=== PATIENT | female | born 1990 | race Caucasian/White ===

== ENCOUNTER 2019-01-26 03:15 | Inpatient (IN) | payer OTHER ==
[2019-01-26] MEDS ORDERED: AMPICILLIN - 2 GM in SODIUM CHLORIDE 100 ML IVPB ONE (04:00)
[2019-01-26] MEDS ORDERED: DEXTROSE 5%-LACTATED RINGERS 500 ML IV ONE (04:00)
[2019-01-26] MEDS ORDERED: AMPICILLIN SODIUM 2 GM VIAL ONE (04:01)
[2019-01-26 04:06] VITALS: BMI 38.0
[2019-01-26 04:29] LABS: BASO % 0.1 % (0-2.0); EOS % 0.1 % (0-4.5); HEMATOCRIT 37.4 % (32.4-45.2); HEMOGLOBIN 12.4 GM/dL (10.7-15.3); LYMPH % 13.7 % (8-40); MCH 29.4 pg (25.7-33.7); MCHC 33.1 g/dl (32.0-36.0); MEAN CELL VOLUME 88.7 fl (80-96); MEAN PLT VOLUME 7.8 fl (7.5-11.1); MONO % 7.6 % (3.8-10.2); NEUT % 78.5 % (42.8-82.8); PLATELET COUNT 245 K/MM3 (134-434); RBC 4.22 M/mm3 (3.60-5.2); RDW 15.2 % (11.6-15.6); WHITE BLOOD COUNT 10.7 K/mm3 (4.0-10.0)
[2019-01-26] MEDS ORDERED: PROMETHAZINE HCL 25 MG/1 ML VIAL IVPB ONE (04:40)
[2019-01-26] MEDS ORDERED: BUTORPHANOL TARTRATE 1 MG/ML VIAL IVPB ONE (04:40)
[2019-01-26 04:42] LABS: INR 0.94 (0.83-1.09); PROTHROMBIN TIME (PATIENT) 11.1 SEC (9.7-13.0)
[2019-01-26 04:45] LABS: ACTIVATED PTT 26.1 SECONDS (25.2-36.5)
[2019-01-26 04:50] LABS: ANION GAP 10 MMOL/L (8-16); BLOOD UREA NITROGEN 6 mg/dL (7-18); CALCIUM 8.2 mg/dL (8.5-10.1); CHLORIDE 108 mmol/L (98-107); CO2 23 mmol/L (21-32); CREATININE 0.4 mg/dL (0.55-1.3); GLUCOSE,RANDOM 92 mg/dL (74-106); POTASSIUM 3.9 mmol/L (3.5-5.1); SODIUM 140 mmol/L (136-145)
[2019-01-26] MEDS ORDERED: DEXTROSE 5%-LACTATED RINGERS 1,000 ML IV SCH (05:00)
[2019-01-26] MEDS ORDERED: BUTORPHANOL TARTRATE 2 MG/ML VIAL ONE (05:12)
[2019-01-26] MEDS ORDERED: PROMETHAZINE HCL 25 MG/1 ML VIAL ONE (05:12)
[2019-01-26] MEDS ORDERED: AMPICILLIN SODIUM 1 GM VIAL ONE ×4 (07:11→20:16)
[2019-01-26] MEDS: AMPICILLIN - 1 GM in SODIUM CHLORIDE 100 ML IVPB SCH ×4 (07:31→20:30)
--- NOTE | 2019-01-26 08:14 | HP ---
Past Medical History - Admission Chief Complaint: Labor pain History of Present Illness: 28 yo , @ 38.5 weeks gestation, EDC 02/04/19, admitted for labor pain. History Source: Patient Limitations to Obtaining History: No Limitations - Past Medical History ...: 1 ...Para: 0 ...Term: 0 ...: 0 ...Spon : 0 ...Induced : 0 ...Multiple Gestation: 0 ...LMP: 04/24/18 ... Weeks Gestation by Dates: 38.5 ...EDC by Dates: 02/04/19 - Past Surgical History Past Surgical History: Yes: None Hx Myomectomy: No Hx Transabdominal Cerclage: No - Smoking History Smoking history: Never smoked - Alcohol/Substance Use Hx Alcohol Use: No - Social History History of Recent Travel: No Home Medications - Allergies Allergies/Adverse Reactions: Allergies Allergy/AdvReac Type Severity Reaction Status Date / Time No Known Allergies Allergy Verified 01/25/19 07:21 - Home Medications Home Medications: Ambulatory Orders Pnv,Calcium 72/Iron,Carb/Folic [ Plus Iron Tablet] 1 tab PO DAILY Family Disease History - Family Disease History Family History: Unremarkable Review of Systems - Review of Systems Constitutional: reports: No Symptoms Eyes: reports: No Symptoms HENT: reports: No Symptoms Neck: reports: No Symptoms Cardiovascular: reports: No Symptoms Respiratory: reports: No Symptoms Gastrointestinal: reports: No Symptoms Genitourinary: reports: Pain Neurological: reports: No Symptoms Psychiatric: reports: No Symptoms Pain Intensity: 7 Physical Exam - Maternity Vital Signs: Vital Signs Temperature 98.4 F 01/26/19 06:00 Pulse Rate 86 01/26/19 07:00 Respiratory Rate 20 01/26/19 07:00 Blood Pressure 124/78 01/26/19 07:00 O2 Sat by Pulse Oximetry (%) Constitutional: Yes: Well Nourished Eyes: Yes: Conjunctiva Clear HENT: Yes: Atraumatic Neck: Yes: Supple Cardiovascular: Yes: Regular Rate and Rhythm Lungs: Clear to auscultation - Abdominal Exam/OB Number of Fetuses: Single Presentation: Vertex - Physical Exam Psychiatric: Yes: Alert, Oriented - Labs Lab Results: CBC, BMP 01/26/19 04:10 05/05/19 04:10 Problem List - Problems (1) Pain during labor Code(s): O99.89 - OTH DISEASES AND CONDITIONS COMPL PREG/CHLDBRTH; R52 - PAIN, UNSPECIFIED Assessment/Plan Labor pain Admit to L&D Analgesia as needed Anticipate
[2019-01-26] MEDS: ELECTROLYTE-148 SOLN 1,000 ML IV SCH ×3 (08:50→18:26)
[2019-01-26] MEDS ORDERED: FENTANYL/BUPIVACAINE/NS/PF - PCEA - 50 ML DISP.SYRIN EP ONE ×4 (08:59→21:34)
[2019-01-26] MEDS ORDERED: TUBERCULIN PPD 5 TU/0.1ML SYRINGE (IN PATIENT USE ONLY) ID ONE (09:00)
[2019-01-26] MEDS ORDERED: NALOXONE HCL 0.4 MG/ML VIAL IVPUSH PRN (09:07)
[2019-01-26] MEDS ORDERED: LIDO 2%/EPI 1:200000 PRESRVFRE (20 ML SDVIAL) ONE (09:09)
[2019-01-26] MEDS ORDERED: FENTANYL/BUPIVACAINE/NS/PF - PCEA - 50 ML DISP.SYRIN EP SCH (09:15)
[2019-01-26] MEDS ORDERED: OXYTOCIN 20 UNITS in 0.9% NS 20 UNIT/1,000 ML INFUS.BAG IV ONE (09:44)
--- NOTE | 2019-01-26 13:48 | PN ---
Ante-Partal Exam - Subjective Subjective: Pt with mild pain pt comfortable with epidural Vital Signs: Vital Signs Temperature 98.9 F 01/26/19 13:00 Pulse Rate 107 H 01/26/19 12:45 Respiratory Rate 20 01/26/19 12:45 Blood Pressure 129/82 01/26/19 12:45 O2 Sat by Pulse Oximetry (%) 96 01/26/19 12:45 Bleeding: No Headache: No Visual changes: No Right upper quadrant pain: No - Contractions Contractions: Yes Regularity: Irregular Intensity: Mild Monitor Mode: External - Exam during Labor Heart Rate: 140 Variability: Moderate Category: I Monitor Decelerations: None Exam: Vaginal Dilatation (cm): 5 cm Amniotic Membrane Status: Bulging Presentation: Vertex Station: -2 - Intrapartum Hemorrhage Risk Risk Score: 0 Risk Level: Low Risk - Assessment/Plan Assessment/Plan: Labor at 38.5 weeks GBS positive Primigravida Plan continue to observe epidural
--- NOTE | 2019-01-26 21:32 | PN ---
Ante-Partal Exam - Subjective Subjective: Pt feeling comfortable Vital Signs: Vital Signs Temperature 99.9 F H 01/26/19 21:00 Pulse Rate 83 01/26/19 20:00 Respiratory Rate 18 01/26/19 20:00 Blood Pressure 149/81 01/26/19 20:00 O2 Sat by Pulse Oximetry (%) 95 01/26/19 20:00 Bleeding: No Headache: No Visual changes: No Right upper quadrant pain: No - Contractions Contractions: Yes Regularity: Irregular Intensity: Mild/Mod Monitor Mode: External - Exam during Labor Heart Rate: 140 Variability: Moderate Heart Rate Location: [facility] Category: I Monitor Decelerations: None Exam: Vaginal Dilatation (cm): 6 Effacement (%): 100 Amniotic Membrane Status: Ruptured Presentation: Vertex - Intrapartum Hemorrhage Risk Risk Score: 0 Risk Level: Low Risk - Assessment/Plan Assessment/Plan: Irregular contractions Cat 1 AROM clear GBS positive on abs IUP @ 38.6 week Plan Pitocin augmentation
[2019-01-26] MEDS ORDERED: BISACODYL 10 MG SUPP.RECT PR PRN (21:33)
[2019-01-26] MEDS ORDERED: BENZOCAINE 28 GM HEMORRHOIDAL OINTMENT PR PRN (21:33)
[2019-01-26] MEDS ORDERED: WITCH HAZEL 50% (TUCKS) 40 PAD/JAR PAD TP PRN (21:33)
[2019-01-26] MEDS ORDERED: BENZOCAINE 20% 57 GM BOTTLE TP PRN (21:33)
[2019-01-26] MEDS ORDERED: METHYLERGONOVINE MALEATE 0.2 MG/1 ML AMP IM PRN (21:33)
[2019-01-26] MEDS ORDERED: OXYTOCIN 30 UNITS in 0.9% NS 30 UNIT/500 ML INFUS.BAG IVPB SCH (21:45)
[2019-01-26] MEDS: ACETAMINOPHEN 325 MG TABLET (FP) PO PRN (22:16)
[2019-01-26] MEDS ORDERED: ACETAMINOPHEN 325 MG TABLET (FP) ONE (22:17)
[2019-01-27] MEDS: AMPICILLIN - 1 GM in SODIUM CHLORIDE 100 ML IVPB SCH (00:43)
--- NOTE | 2019-01-27 00:58 | PN ---
Ante-Partal Exam - Subjective Subjective: Pt with urge to push Vital Signs: Vital Signs Temperature 98.4 F 01/27/19 00:00 Pulse Rate 80 01/26/19 23:00 Respiratory Rate 18 01/26/19 23:00 Blood Pressure 142/75 01/26/19 23:00 O2 Sat by Pulse Oximetry (%) 97 01/26/19 23:00 Bleeding: No Headache: No Visual changes: No Right upper quadrant pain: No - Contractions Contractions: Yes Intensity: Moderate Monitor Mode: External - Exam during Labor Heart Rate: 150 Variability: Moderate Heart Rate Location: [facility] Category: I Monitor Accelerations: Present Monitor Decelerations: None Exam: Vaginal Dilatation (cm): FD Effacement (%): 100 Amniotic Membrane Status: Ruptured Amniotic Fluid: Clear Presentation: Vertex Station: +2 - Intrapartum Hemorrhage Risk Risk Score: 0 Risk Level: Low Risk - Assessment/Plan Assessment/Plan: 2nd stage of labor Plan anticipate vaginal delivery
--- NOTE | 2019-01-27 01:19 | PN ---
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
[2019-01-27] MEDS: ACETAMINOPHEN 325 MG TABLET (FP) PO PRN ×3 (01:55→14:24)
[2019-01-27] MEDS: IBUPROFEN 600 MG TABLET (FP) PO PRN ×3 (01:56→14:24)
[2019-01-27] MEDS ORDERED: IBUPROFEN 600 MG TABLET (FP) PO ONE (01:59)
[2019-01-27] MEDS ORDERED: ACETAMINOPHEN 325 MG TABLET (FP) ONE (01:59)
[2019-01-27 02:11] LABS: VENOUS PC02 41.7 mmHg (41-51); VENOUS PH 7.34 (7.31-7.41); VENOUS PO2 33.5 mmHg (30-40)
[2019-01-27 07:59] LABS: BASO % 0.1 % (0-2.0); HEMATOCRIT 32.6 % (32.4-45.2); HEMOGLOBIN 10.7 GM/dL (10.7-15.3); LYMPH % 8.6 % (8-40); MCH 29.1 pg (25.7-33.7); MCHC 32.7 g/dl (32.0-36.0); MEAN CELL VOLUME 89.1 fl (80-96); MEAN PLT VOLUME 7.6 fl (7.5-11.1); MONO % 10.6 % (3.8-10.2); NEUT % 80.7 % (42.8-82.8); PLATELET COUNT 206 K/MM3 (134-434); RBC 3.66 M/mm3 (3.60-5.2); RDW 15.1 % (11.6-15.6); WHITE BLOOD COUNT 12.8 K/mm3 (4.0-10.0)
[2019-01-27] MEDS ORDERED: DIPHTH,PERTUSS(ACELL),TET 0.5 ML DISP.SYRIN IM ONE (10:00)
[2019-01-27] MEDS ORDERED: FLU VACCINE QUAD 60 MCG/0.5 ML (MDV 18-19) IM ONE (10:00)
--- NOTE | 2019-01-28 09:02 | PN ---
Post Progress Note - Subjective Subjective: Pt doing well, no complaints. Tolerating diet, ambulating, voiding, passing flatus. Type of Delivery: Vital Signs: Vital Signs Temperature 98.4 F 01/28/19 08:41 Pulse Rate 91 H 01/28/19 08:41 Respiratory Rate 20 01/28/19 08:41 Blood Pressure 139/88 01/28/19 08:41 O2 Sat by Pulse Oximetry (%) 100 01/27/19 02:15 Uterus: Yes: Fundus Firm Abdomen/GI: Yes: Abdomen soft Lochia: Yes: Rubra Lochia, amount: Small Extremities: Yes: Calves non-tender Activity: Ambulating - Labs Labs: CBC WBC 12.8 K/mm3 (4.0-10.0) H 01/27/19 06:48 RBC 3.66 M/mm3 (3.60-5.2) 01/27/19 06:48 Hgb 10.7 GM/dL (10.7-15.3) 01/27/19 06:48 Hct 32.6 % (32.4-45.2) 01/27/19 06:48 MCV 89.1 fl (80-96) 01/27/19 06:48 MCH 29.1 pg (25.7-33.7) 01/27/19 06:48 MCHC 32.7 g/dl (32.0-36.0) 01/27/19 06:48 RDW 15.1 % (11.6-15.6) 01/27/19 06:48 Plt Count 206 K/MM3 (134-434) 01/27/19 06:48 MPV 7.6 fl (7.5-11.1) 01/27/19 06:48 Absolute Neuts (auto) 10.3 K/mm3 (1.5-8.0) H 01/27/19 06:48 Neutrophils % 80.7 % (42.8-82.8) 01/27/19 06:48 Lymphocytes % 8.6 % (8-40) D 01/27/19 06:48 Monocytes % 10.6 % (3.8-10.2) H 01/27/19 06:48 Eosinophils % 0.0 % (0-4.5) D 01/27/19 06:48 Basophils % 0.1 % (0-2.0) 01/27/19 06:48 Nucleated RBC % 0 % (0-0) 01/27/19 06:48 Problem List - Problems (1) Vaginal delivery Code(s): O80 - ENCOUNTER FOR FULL-TERM UNCOMPLICATED DELIVERY Assessment/Plan Pt doing well regular diet ambulation await CBC this a.m. pt desires circumcision for baby, awaiting clearance from embryology teacher
[2019-01-28] MEDS: IBUPROFEN 600 MG TABLET (FP) PO PRN (09:29)
[2019-01-28] MEDS: ACETAMINOPHEN 325 MG TABLET (FP) PO PRN (09:30)
[2019-01-29 09:13] VITALS: BP 131/76; PULSE 101; TEMP 98.4
--- NOTE | 2019-02-03 11:41 | DS ---
Physical Exam-DEMURRAGE MAN Vital Signs: Vital Signs Temperature 98.4 F 01/29/19 09:12 Pulse Rate 101 H 01/29/19 09:12 Respiratory Rate 18 01/29/19 09:12 Blood Pressure 131/76 01/29/19 09:12 O2 Sat by Pulse Oximetry (%) 100 01/27/19 02:15 Constitutional: Yes: Well Nourished, No Distress Eyes: Yes: WNL HENT: Yes: WNL Neck: Yes: WNL Cardiovascular: Yes: WNL Respiratory: Yes: WNL Gastrointestinal: Yes: WNL ....Post : Yes: Uterus firm, Uterus non-tender Breast(s): Yes: WNL Musculoskeletal: Yes: WNL Edema: No Labs: CBC, BMP 01/27/19 06:48 01/26/19 04:10 Delivery - Delivery Vaginal Delivery: No Problems (NUchal cord x 1 delivered in Samantha maneuver) Type of Anesthesia: Epidural Episiotomy/Laceration: Midline EBL (cc): 500 Delivery, Single - Stages of Labor Date 1st Stage Initiatied: 01/27/19 Time 1st Stage Initiated: 05:20 Date 2nd Stage Initiated: 01/27/19 Time 2nd Stage Initiated: 00:30 Date of Delivery: 01/27/19 Time of Delivery: 01:07 Time Placenta Delivered: 01:09 Placenta: Yes: Spontaneous - Condition of School Bus Dispatcher/Health Data Administrator Present: Yes Infant Gender: Male Weight: 7 lb 14 oz Position: OA Total Hours ROM (Hrs/Mins): 2h 47m - 1 Minute Total Score: 9 5 Minutes Total Score: 9 - Feeding Plan Initial Plan: Elected not to breastfeed exclusively throughout hospitalization Benefits of Exclusively reinforced: Yes Discharge Summary Reason For Visit: LABOR Procedures: Principal: Normal vaginal delivery Condition: Good - Instructions Diet, Activity, Other Instructions: Physical activity Resume your normal everyday activity as tolerated no heavy lifting or exercise until seen by your surgeon. You may walk unlimited [place] of and climb stairs. You may resume driving the car when you feel safe and comfortable behind the wheel. No sexual activity as instructed. Wound care If you have a bandage, leave it on, and keep dry for 48-72 hours. After that time discard the outer bandage. If they are tapes on the skin under the out of bandage leave them in place. They will peel off in the next 7 to 10 days. Do Not Peel them off. You may shower the day after surgery. If there are tapes present on the skin, you may shower over them. Diet There are no dietary restrictions. Eat healthy, high-fiber foods. Drink 6 to 8 glasses of liquid each day. This will assist in keeping your bowels are regular. Pain management You may take Tylenol or acetaminophen or Ibuprofen (for example, Motrin, Advil etc.) from my pain prescription medication is ordered should be taken as prescribed for moderate to severe pain. Call MD for any of the following: Severe pain not relieved by medication Fever of 101 or higher Excessive bleeding or drainage on dressing Inability to urinate Disposition: HOME - Home Medications Comprehensive Discharge Medication List: Ambulatory Orders Pnv,Calcium 72/Iron,Carb/Folic [ Plus Iron Tablet] 1 tab PO DAILY Ibuprofen [Motrin -] 600 mg PO QID #28 tablet 01/27/19
== END 2019-01-29 18:30 | disposition home or self-care (01) | DRG 560 ==
LOC: JDEL 03:15 → JLDR 03:40 → J3W 01-27 02:54
PROVIDERS: ADMIT Obstetrics & Gynecology; ATTEND Obstetrics & Gynecology
PROC: 10E0XZZ Delivery of Products of Conception, External Approach (ICD-10-PCS; principal; 2019-01-27)
DX: O80 Encounter for full-term uncomplicated delivery (principal); Z3A.38 38 weeks gestation of pregnancy; Z37.0 Single live birth
CPT/HCPCS: 36415; 59025; 59409; 71046-TC-FY; 80048; 82803; 85025; 85610; 85730; 86593; 86850; 86900; 86901; 87389; 90686; 90715; G0008

== ENCOUNTER 2020-11-19 06:20 | Inpatient (IN) | payer OTHER ==
[2020-11-19] MEDS ORDERED: PROMETHAZINE HCL 25 MG/1 ML VIAL IVPUSH ONE (07:20)
[2020-11-19] MEDS ORDERED: BUTORPHANOL TARTRATE 2 MG/ML VIAL IVPB ONE (07:20)
[2020-11-19] MEDS ORDERED: ELECTROLYTE-148 SOLN 1,000 ML IV SCH (07:30)
[2020-11-19] MEDS ORDERED: OXYTOCIN 20 UNITS in 0.9% NS 20 UNIT/1,000 ML INFUS.BAG IV ONE ×2 (07:31→10:04)
[2020-11-19] MEDS ORDERED: WITCH HAZEL 50% (TUCKS) 40 PAD/JAR PAD TP PRN (08:02)
[2020-11-19] MEDS ORDERED: BISACODYL 10 MG SUPP.RECT PR PRN (08:02)
[2020-11-19] MEDS ORDERED: BENZOCAINE 28 GM HEMORRHOIDAL OINTMENT TP PRN (08:02)
[2020-11-19] MEDS ORDERED: METHYLERGONOVINE MALEATE 0.2 MG/1 ML AMP IM PRN (08:02)
[2020-11-19] MEDS ORDERED: BENZOCAINE 20% 57 GM BOTTLE TP PRN (08:02)
[2020-11-19] MEDS ORDERED: OXYTOCIN 20 UNITS in 0.9% NS 20 UNIT/1,000 ML INFUS.BAG IV SCH (08:15)
[2020-11-19] MEDS ORDERED: IBUPROFEN 600 MG TABLET (FP) PO ONE (08:33)
[2020-11-19] MEDS ORDERED: ACETAMINOPHEN 325 MG TABLET (FP) ONE (08:33)
[2020-11-19 08:34] LABS: INR 0.88 (0.83-1.09); PROTHROMBIN TIME (PATIENT) 10.9 SEC (9.7-13.0)
[2020-11-19 08:36] LABS: BASO % 0.2 % (0-2.0); EOS % 0.1 % (0-4.5); HEMATOCRIT 36.8 % (32.4-45.2); HEMOGLOBIN 12.4 GM/dL (10.7-15.3); LYMPH % 11.8 % (8-40); MCH 28.7 pg (25.7-33.7); MCHC 33.7 g/dl (32.0-36.0); MEAN CELL VOLUME 85.3 fl (80-96); MEAN PLT VOLUME 8.1 fl (7.5-11.1); MONO % 6.4 % (3.8-10.2); NEUT % 81.5 % (42.8-82.8); PLATELET COUNT 317 K/MM3 (134-434); RBC 4.32 M/mm3 (3.60-5.2); RDW 14.4 % (11.6-15.6); WHITE BLOOD COUNT 8.5 K/mm3 (4.0-10.0)
[2020-11-19 08:37] LABS: ACTIVATED PTT 26.3 SECONDS (25.2-36.5)
[2020-11-19] MEDS: ACETAMINOPHEN 325 MG TABLET (FP) PO PRN ×4 (08:40→22:50)
[2020-11-19] MEDS: IBUPROFEN 600 MG TABLET (FP) PO PRN ×4 (08:40→22:49)
[2020-11-19 08:55] VITALS: BMI 38.2
[2020-11-19 08:59] LABS: POTASSIUM 3.7 mmol/L (3.5-5.1)
[2020-11-19 09:01] LABS: BLOOD UREA NITROGEN 9.6 mg/dL (7-18); CALCIUM 8.2 mg/dL (8.5-10.1)
[2020-11-19 09:04] LABS: CREATININE 0.5 mg/dL (0.55-1.3)
[2020-11-19 11:12] LABS: HIV INTERPRETATION NEGATIVE (NEGATIVE)
[2020-11-19 13:19] LABS: URINE BARBITURATES NEGATIVE ng/ml (CUTOFF=200); URINE BENZODIAZEPINES NEGATIVE ng/ml (CUTOFF=200)
[2020-11-19 13:20] LABS: COCAINE, UR NEGATIVE ng/ml (CUTOFF=300); METHADONE, UR NEGATIVE ng/ml (CUTOFF=300); OPIATES, URI NEGATIVE ng/ml (CUTOFF=300); PHENCYCLIDINE,URINE NEGATIVE ng/ml (CUTOFF=25); URINE AMPHETAMINES NEGATIVE ng/ml (CUTOFF=500)
[2020-11-19] MEDS ORDERED: SENNOSIDES/DOCUSATE COMBO (SENNA PLUS) TABLET (UD) PO SCH (22:00)
[2020-11-20 08:18] LABS: BASO % 0.2 % (0-2.0); EOS % 0.2 % (0-4.5); HEMATOCRIT 34.2 % (32.4-45.2); HEMOGLOBIN 11.6 GM/dL (10.7-15.3); LYMPH % 17.8 % (8-40); MCH 28.7 pg (25.7-33.7); MCHC 33.8 g/dl (32.0-36.0); MEAN PLT VOLUME 7.8 fl (7.5-11.1); MONO % 8.5 % (3.8-10.2); NEUT % 73.3 % (42.8-82.8); PLATELET COUNT 303 K/MM3 (134-434); RBC 4.02 M/mm3 (3.60-5.2); RDW 14.5 % (11.6-15.6); WHITE BLOOD COUNT 9.3 K/mm3 (4.0-10.0)
[2020-11-20] MEDS: IBUPROFEN 600 MG TABLET (FP) PO PRN ×2 (08:44→12:31)
[2020-11-20] MEDS: ACETAMINOPHEN 325 MG TABLET (FP) PO PRN ×2 (08:46→12:30)
[2020-11-20] MEDS ORDERED: FLU VACCINE (FLULAVAL) PF 60 MCG/0.5 ML SYRINGE 2020-2021 IM ONE (10:00)
[2020-11-20 11:08] VITALS: BP 114/62; PULSE 84; TEMP 98.1
== END 2020-11-20 18:30 | disposition home or self-care (01) | DRG 560 ==
LOC: JDEL 06:20 → JLDR 06:57 → J3W 10:16
PROVIDERS: ADMIT Obstetrics & Gynecology; ATTEND Obstetrics & Gynecology
PROC: 10E0XZZ Delivery of Products of Conception, External Approach (ICD-10-PCS; principal; 2020-11-19)
DX: O62.3 Precipitate labor (principal); Z3A.38 38 weeks gestation of pregnancy; Z37.0 Single live birth
CPT/HCPCS: 36415; 59409; 80048; 80307; 85025; 85610; 85730; 86780; 86850; 86900; 86901; 87389; C9803; G0008; Q2036; U0003

== ENCOUNTER 2024-07-06 09:55 | Emergency (ER) | payer OTHER ==
[2024-07-06 10:02] VITALS: BP 111/56; PULSE 100; RESP 16; TEMP 98.8; BMI 53.1
[2024-07-06] MEDS ORDERED: KETOROLAC TROMETHAMINE 30 MG/1 ML VIAL ONE (11:49)
[2024-07-06] MEDS: KETOROLAC TROMETHAMINE 30 MG/1 ML VIAL IM ONE (11:54)
[2024-07-06] MEDS: diazePAM 5 MG TABLET PO ONE (11:55)
[2024-07-06] MEDS ORDERED: diazePAM 5 MG TABLET PO SCH (14:00)
== END 2024-07-06 12:46 | disposition home or self-care (01) ==
LOC: JER 09:55
PROC: 3E0133Z Introduction of Anti-inflammatory into Subcutaneous Tissue, Percutaneous Approach (ICD-10-PCS; principal; 2024-07-06)
DX: M54.9 Dorsalgia, unspecified (principal); R51.9 Headache, unspecified; M54.2 Cervicalgia; M79.604 Pain in right leg; M79.605 Pain in left leg; V03.10XA Pedestrian on foot injured in collision with car, pick-up truck or van in traffic accident, initial encounter
CPT/HCPCS: 99284-25